=== PATIENT | male | born 1950 | race Caucasian/White ===

== ENCOUNTER 2021-06-25 08:59 | Outpatient (CLI) | payer MEDICARE, OTHER, SELFPAY ==
--- NOTE | 2021-06-25 09:14 | EKG12_ITS ---
Test Reason : PRE OP Blood Pressure : / mmHG Vent. Rate : 051 BPM Atrial Rate : 051 BPM P-R Int : 160 ms QRS Dur : 098 ms QT Int : 396 ms P-R-T Axes : 056 088 073 degrees QTc Int : 364 ms Sinus bradycardia Septal infarct , age undetermined Abnormal ECG Confirmed by FENG RODRIGUEZ, MARK ([id number]), purchasing expeditor CHAVO DAVIS ([id number]) on 06/25/2021 2:20:38 PM Referred By: Orestes Peters Confirmed By:MARK TONEY MD
--- NOTE | 2021-06-25 09:30 | RAD_ITS ---
STUDY: X-RAY CHEST REASON FOR EXAM: Male, 70 years old. Preoperative evaluation. TECHNIQUE: Frontal and lateral views of the chest. COMPARISON: 01/08/2013. FINDINGS: Hyperexpansion. Scattered healed parenchymal granulomatous calcifications. There is no demonstrated pleural abnormality. Borderline cardiomegaly with aortic tortuosity. Normal mediastinum and clifton. Normal visualized pulmonary arteries. Normal visualized thoracic spine. Normal visualized ribs, clavicles, and shoulders. There is no demonstrated abnormality of the visualized soft tissue structures of the upper abdomen. RAD/Chest PA and Lateral IMPRESSION: Borderline cardiomegaly with mild hyperexpansion. No active or acute cardiopulmonary disease. Electronically Signed: Neel Mitchell MD at 9:20 EST ,
== END 2021-06-25 23:59 | disposition home or self-care (01) ==
PROVIDERS: PCP Internal Medicine; Referring Provider Orthopaedic Surgery; Visit Provider Orthopaedic Surgery
DX: Z01.810 Encounter for preprocedural cardiovascular examination (principal); Z01.811 Encounter for preprocedural respiratory examination
CPT/HCPCS: 71046; 93005

== ENCOUNTER → 2021-09-05 | Outpatient (CLI) | payer MEDICARE, OTHER, SELFPAY ==
[2021-09-05 12:16] LABS: Absolute Lymphocyte Count 1.19 X10^3/uL (0.83-4.51); Absolute Neutrophil Count 5.3 X10^3/uL (2.0-7.7); Basophil# 0.06 X10^3/uL; Basophil% 0.8 % (0-1); Eosinophil# 0.23 X10^3/uL; Hematocrit 48.2 % (40-54); Hemoglobin 15.1 g/dL (13.0-16.5); Lymphocyte # 1.19 X10^3/ul (0.83-4.51); Lymphocyte % 15.5 % (19-41); Mean Corp Hgb Conc 31.3 g/dL (32-36); Mean Corpuscular Hgb 30.7 pg (27.0-32.0); Mean Platelet Vol. 10.2 fl (6.2-12.0); Monocyte# 0.85 X10^3/uL; Monocyte% 11.1 % (0-10); NRBC Flagged by Analyzer 0 % (0-5); Neutrophil # 5.33 X10^3/uL (2.7-7.7); Neutrophil % 69.3 % (47-70); Platelet Count 261 K/mm3 (150-450); RBC Distribution Width CV 13.1 % (11.6-14.6); Red Blood Count 4.92 M/mm3 (4.6-6.2); White Blood Count 7.7 K/mm3 (4.4-11.0)
[2021-09-05 12:45] LABS: ALB/GLOB Ratio 1.1 RATIO (0.9-2.4); AST(SGOT) 17 U/L (15-37); Alanine Aminotransfer ALT/SGPT 35 U/L (16-61); Albumin, Serum 3.5 g/dL (3.2-5.0); Alkaline Phosphatase 85 U/L (45-117); Anion Gap 4 (5-15); BUN 26 mg/dL (7-18); BUN/Creat Ratio 27.3 RATIO (10-20); Calcium,Total 9.1 mg/dL (8.5-10.1); Chloride 107 mmol/L (98-107); Cholesterol 219 mg/dL (200); Creatinine, Serum 0.95 mg/dL (0.70-1.30); EST Glomerular Filtration Rate 83 mL/min (>60); Est Glom Filt Rate - Afr Amer 100 mL/min (>60); Globulin 3.3 g/dL (2.2-4.2); Glucose 101 mg/dL (74-106); High Density Lipoprotein 52 mg/dL; Potassium 4.5 mmol/L (3.5-5.1); Protein, Total 6.8 g/dL (6.4-8.2); Sodium Level 142 mmol/L (136-145); Triglycerides 66 mg/dL; Very Low Density Lipoprotein 13 mg/dL (5-40)
[2021-09-05 13:00] LABS: Hemoglobin A1c 5.9 % (3.8-5.6)
== END | disposition home or self-care (01) ==
LOC: BIMLAB 08:04
PROVIDERS: PCP Internal Medicine; Referring Provider Internal Medicine; Visit Provider Internal Medicine
DX: I10 Essential (primary) hypertension (principal); K21.9 Gastro-esophageal reflux disease without esophagitis; R73.03 Prediabetes; E78.5 Hyperlipidemia, unspecified
CPT/HCPCS: 36415; 80053; 80061; 83036; 85025

== ENCOUNTER → 2021-09-21 | Outpatient (CLI) | payer MEDICARE, OTHER, SELFPAY ==
--- NOTE | 2021-09-21 | KNEE_PTH ---
PATIENT: RODRIGUEZ BLUE [facility]: [facility] U#:[id number] AGE/SX: 70/M ROOM: RE09/21/[address]: Dr. Orestes Peters MD : 1950 BED: DIS: 09/21/2021 SPEC #: [id number] RECD: 09/21/21 15:16 STATUS: EDI REArin #: [id number] NATHALIE: 09/21/21 00:[address]: Orestes Peters DEPT: SURGICAL PATHOLOGY RECD BY: Trell Jaeger ENTERED: 09/24/21 08:30 SP TYPE: TOTAL KNEE OTHR DR: Dr. Celestina Meyer MD [facility] Tissues: Knee, NOS Procedures: Decalcification bone/plaque Surgery Specimen Level IV HEADER OPERATION: Right total knee arthroplasty PRE-OP DIAGNOSIS: Grade 4 osteoarthritis right knee TISSUE SUBMITTED: Bone and soft tissue right knee MICROSCOPIC DIAGNOSIS Bone and soft tissue, right knee, total knee replacement/resection: Pieces of bone with degenerative osteoarthritic changes. Fibroadipose tissue, fibroconnective tissue and reactive synovial tissue. TITI:michael 09/27/2021 MICROSCOPIC DESCRIPTION Slides are reviewed. GROSS DESCRIPTION Received is one container designated bone and soft tissue right knee. The specimen consists of multiple fragments of finnegan-yellow bone measuring in aggregate 12 x 10 x 4 cm. Also in the specimen container are multiple fragments of yellow-white soft tissue measuring in aggregate 8 x 5 x 2 cm. A number of bony fragments contain articular surfaces consistent with tibial plateau and femoral condyle and displaying prominent osteophyte formation, eburnation, and bone erosion. Crna sections are submitted in two cassettes as follows: 1 - soft tissue, 2 - bone after decalcification. / TITI:michael 09/24/2021 TC:5 [facility]: [id number], [id number]
== END | disposition home or self-care (01) ==
LOC: LABSPEC 16:03
PROVIDERS: PCP Internal Medicine; Referring Provider Orthopaedic Surgery; Visit Provider Orthopaedic Surgery
DX: M17.11 Unilateral primary osteoarthritis, right knee (principal)
CPT/HCPCS: 88305; 88311

== ENCOUNTER → 2022-03-05 | Outpatient (CLI) | payer MEDICARE, OTHER, SELFPAY ==
--- NOTE | 2022-03-04 07:30 | KNEE_PTH ---
PATIENT: RODRIGUEZ BLUE [facility] U#:[id number] AGE/SX: 71/M ROOM: RE03/05/[address]: Dr. Orestes Peters MD : 1950 BED: DIS: 03/05/2022 SPEC #: [id number] RECD: 03/05/22 14:22 STATUS: EDI REArin #: [id number] NATHALIE: 03/04/22 07:[address]: Orestes Peters DEPT: SURGICAL PATHOLOGY RECD BY: Marya Noe ENTERED: 03/06/22 11:49 SP TYPE: TOTAL KNEE OTHR DR: Dr. Celestina Meyer MD [facility] Tissues: Knee, NOS Procedures: Decalcification bone/plaque Surgery Specimen Level IV HEADER OPERATION: Left knee, total knee arthroplasty PRE-OP DIAGNOSIS: Left knee grade 4 primary osteoarthritis TISSUE SUBMITTED: Left knee bone and tissue MICROSCOPIC DIAGNOSIS Bone and soft tissue, left knee, total knee replacement/resection: Pieces of bone with degenerative osteoarthritic changes. Fibroadipose tissue, fibroconnective tissue and reactive synovial tissue. TITI:michael 03/11/2022 MICROSCOPIC DESCRIPTION Slides are reviewed. GROSS DESCRIPTION Received is one container designated bone and soft tissue left knee. The specimen consists of multiple fragments of finnegan-yellow bone measuring in aggregate 9 x 9 x 4 cm. Also in the specimen container are multiple fragments of yellow-white soft tissue measuring in aggregate 8 x 5 x 2 cm. A number of bony fragments contain articular surfaces consistent with tibial plateau and femoral condyle and displaying prominent osteophyte formation, eburnation, and bone erosion. Manufacturing Baker sections are submitted in two cassettes as follows: 1 - soft tissue, 2 - bone after decalcification. / TITI:mil 03/06/2022 TC:5 [facility]: [id number], [id number]
== END | disposition home or self-care (01) ==
LOC: LABSPEC 14:49
PROVIDERS: PCP Internal Medicine; Visit Provider Orthopaedic Surgery
DX: M17.12 Unilateral primary osteoarthritis, left knee (principal)
CPT/HCPCS: 88305; 88311

== ENCOUNTER → 2022-06-24 | Outpatient (CLI) | payer MEDICARE, OTHER, SELFPAY ==
[2022-06-24 12:48] LABS: Absolute Lymphocyte Count 0.83 X10^3/uL (0.83-4.51); Absolute Neutrophil Count 4.1 X10^3/uL (2.0-7.7); Basophil# 0.07 X10^3/uL; Basophil% 1.2 % (0-1); Eosinophil# 0.22 X10^3/uL; Eosinophils% 3.7 % (0-5); Hematocrit 43.1 % (40-54); Hemoglobin 13.6 g/dL (13.0-16.5); Lymphocyte # 0.83 X10^3/ul (0.83-4.51); Lymphocyte % 13.9 % (19-41); Mean Corp Hgb Conc 31.6 g/dL (32-36); Mean Corpuscular Hgb 30.6 pg (27.0-32.0); Mean Corpuscular Volume 97.1 fL (80-94); Mean Platelet Vol. 10.2 fl (6.2-12.0); Monocyte# 0.77 X10^3/uL; Monocyte% 12.9 % (0-10); NRBC Flagged by Analyzer 0 % (0-5); Neutrophil # 4.08 X10^3/uL (2.7-7.7); Platelet Count 280 K/mm3 (150-450); RBC Distribution Width SD 46.1 fl (35.1-43.9); Red Blood Count 4.44 M/mm3 (4.6-6.2)
[2022-06-24 12:49] LABS: AST(SGOT) 21 U/L (15-37); Alanine Aminotransfer ALT/SGPT 25 U/L (16-61); Albumin, Serum 3.4 g/dL (3.2-5.0); Alkaline Phosphatase 113 U/L (45-117); Anion Gap 6 (5-15); BUN 21 mg/dL (7-18); BUN/Creat Ratio 23.2 RATIO (10-20); Chloride 105 mmol/L (98-107); Cholesterol 173 mg/dL (200); EST Glomerular Filtration Rate 87 mL/min (>60); Est Glom Filt Rate - Afr Amer 106 mL/min (>60); Globulin 3.4 g/dL (2.2-4.2); Glucose 104 mg/dL (74-106); High Density Lipoprotein 48 mg/dL; PSA,Total- Diagnostic 4.08 ng/mL (0.0-4.0); Potassium 3.7 mmol/L (3.5-5.1); Protein, Total 6.8 g/dL (6.4-8.2); Sodium Level 141 mmol/L (136-145); Triglycerides 70 mg/dL; Very Low Density Lipoprotein 14 mg/dL (5-40)
[2022-06-24 13:24] LABS: Hemoglobin A1c 5.6 % (3.8-5.6)
== END | disposition home or self-care (01) ==
LOC: BIMLAB 08:47
PROVIDERS: PCP Internal Medicine; Referring Provider Internal Medicine; Visit Provider Internal Medicine
DX: I10 Essential (primary) hypertension (principal); K21.9 Gastro-esophageal reflux disease without esophagitis; R73.03 Prediabetes; R35.1 Nocturia
CPT/HCPCS: 36415; 80053; 80061; 83036; 84153; 85025

== ENCOUNTER → 2023-02-26 | Outpatient (CLI) | payer MEDICARE, OTHER, SELFPAY ==
[2023-02-26 16:30] LABS: Absolute Lymphocyte Count 1.15 X10^3/uL (0.83-4.51); Absolute Neutrophil Count 6.3 X10^3/uL (2.0-7.7); Basophil# 0.05 X10^3/uL; Basophil% 0.6 % (0-1); Eosinophil# 0.11 X10^3/uL; Eosinophils% 1.3 % (0-5); Hematocrit 44.5 % (40-54); Hemoglobin 14.2 g/dL (13.0-16.5); Lymphocyte # 1.15 X10^3/ul (0.83-4.51); Lymphocyte % 13.6 % (19-41); Mean Corp Hgb Conc 31.9 g/dL (32-36); Mean Corpuscular Hgb 29.9 pg (27.0-32.0); Mean Corpuscular Volume 93.7 fL (80-94); Mean Platelet Vol. 9.4 fl (6.2-12.0); Monocyte# 0.79 X10^3/uL; Monocyte% 9.3 % (0-10); NRBC Flagged by Analyzer 0 % (0-5); Neutrophil # 6.34 X10^3/uL (2.7-7.7); Neutrophil % 74.7 % (47-70); Platelet Count 303 K/mm3 (150-450); RBC Distribution Width CV 13.1 % (11.6-14.6); RBC Distribution Width SD 45.1 fl (35.1-43.9); Red Blood Count 4.75 M/mm3 (4.6-6.2); White Blood Count 8.5 K/mm3 (4.4-11.0)
[2023-02-26 16:54] LABS: CRP 5.04 mg/L (0.0-3.0)
[2023-02-26 17:07] LABS: Erythrocyte Sedimentation Rate 6 mm/hr (0-20)
== END | disposition home or self-care (01) ==
LOC: LAB 16:07
PROVIDERS: PCP Internal Medicine; Visit Provider Orthopaedic Surgery
DX: M25.562 Pain in left knee (principal); Z96.652 Presence of left artificial knee joint
CPT/HCPCS: 36415; 85025; 85652; 86140

== ENCOUNTER → 2023-03-05 | Outpatient (CLI) | payer MEDICARE, OTHER, SELFPAY ==
[2023-03-05 17:34] LABS: Synovial Fld Mononuclear WBC # 0.109 10^3/ul; Synovial Fld Mononuclear WBC % 87.9 %; Synovial Fld Polynuclear WBC # 0.015 10^3/uL; Synovial Fld Polynuclear WBC % 12.1 %
[2023-03-05 18:46] LABS: Lymph 27 %; Monocyte /Synovial Fluid 34 %; Neutrophil 12 % (0-25); Other Cell /Synovial Fluid 27 %
[2023-03-05 18:50] LABS: AUTO B FLUID DILUENT BKGD CT WBC <0.1 RBC <0.01 (W<.1,R<.01)
[2023-03-05 18:51] LABS: Appearance /Synovial Fluid Clear (CLEAR); Body Fluid QC Type(s) BF1Q; Color / Synovial Fluid Straw (Pale Yellow); RBC /Synovial Fluid 678 /mm3 (0)
[2023-03-10 09:35] LABS: Pathologist Comment Reviewed
== END | disposition home or self-care (01) ==
LOC: LAB 15:25
PROVIDERS: PCP Internal Medicine; Referring Provider Orthopaedic Surgery; Visit Provider Orthopaedic Surgery
DX: M25.562 Pain in left knee (principal); Z96.652 Presence of left artificial knee joint; Z71.3 Dietary counseling and surveillance
CPT/HCPCS: 87015; 87070; 87075; 87101; 87116; 87205; 87206; 89050; 89051

== ENCOUNTER → 2023-06-16 | Outpatient (CLI) | payer MEDICARE, OTHER, SELFPAY ==
--- NOTE | 2023-06-16 10:40 | RAD_ITS ---
INDICATION: Bilateral hip pain, arthritis EXAMINATION/TECHNIQUE: X-RAY - XR Hips Bilateral with Pelvis when performed; 5 Views COMPARISON: No relevant prior comparison study available. FINDINGS: PELVIC BONES: No displaced fracture, destructive or sclerotic lesions. Note that overlapping bowel shadows may however obscure fine detail. Sacroiliac joints are unremarkable. No widening of the pubic symphysis. HIPS: The articular structures are unremarkable. No displaced fracture seen. SOFT TISSUES: No soft tissue swelling or gas. RAD/Hips B/L min 2 views w/ Pelvis IMPRESSION: No evidence of displaced pelvic or hip fracture. Electronically Signed: Bruce Sol MD at 9:42 EST ,
--- NOTE | 2023-06-16 10:40 | RAD_ITS ---
STUDY: X-RAY - RIGHT HAND REASON FOR EXAM: Male, 72 years old. hand pain, arthritis -- original e order, as bilateral hands TECHNIQUE: 3 view(s) of the hand. COMPARISON: None. FINDINGS: Normal radiocarpal articulation. Normal distal radioulnar joint. Normal visualized carpal bones. Normal carpal articulations Normal carpometacarpal articulation of the thumb. Normal second through fifth carpometacarpal joints. Normal metacarpi. Normal metacarpophalangeal joint of the thumb. Normal interphalangeal joint of the thumb. Normal proximal and distal phalanges of the thumb. Normal metacarpophalangeal joints of the second through fifth fingers. Normal proximal and distal interphalangeal joints of the second through fifth fingers. Normal phalanges of the second through fifth fingers. The soft tissue structures are unremarkable. RAD/Hand Min 3 Views IMPRESSION: Normal x-ray examination of the hand. Electronically Signed: Bienvenido Reza MD at 11:24 EST ,
--- NOTE | 2023-06-16 10:42 | RAD_ITS ---
STUDY: X-RAY - LEFT HAND REASON FOR EXAM: Male, 72 years old. Pain TECHNIQUE: 3 view(s) of the hand. COMPARISON: None. FINDINGS: Normal radiocarpal articulation. Normal distal radioulnar joint. Normal visualized carpal bones. Normal carpal articulations There is degenerative arthrosis of the carpometacarpal articulation of the thumb with lateral subluxation of the first metacarpus. Normal second through fifth carpometacarpal joints. Normal metacarpi. Normal metacarpophalangeal joint of the thumb. Normal interphalangeal joint of the thumb. Normal proximal and distal phalanges of the thumb. Normal metacarpophalangeal joints of the second through fifth fingers. Normal proximal and distal interphalangeal joints of the second through fifth fingers. Normal phalanges of the second through fifth fingers. The soft tissue structures are unremarkable. 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 Electronically Signed: Bienvenido Reza MD at 11:25 EST ,
[2023-06-16 12:26] LABS: Absolute Lymphocyte Count 1.23 X10^3/uL (0.83-4.51); Absolute Neutrophil Count 5.3 X10^3/uL (2.0-7.7); Basophil# 0.07 X10^3/uL; Basophil% 0.9 % (0-1); Eosinophil# 0.23 X10^3/uL; Hematocrit 47.6 % (40-54); Hemoglobin 15.5 g/dL (13.0-16.5); Lymphocyte # 1.23 X10^3/ul (0.83-4.51); Lymphocyte % 16.2 % (19-41); Mean Corp Hgb Conc 32.6 g/dL (32-36); Mean Corpuscular Hgb 30.1 pg (27.0-32.0); Mean Corpuscular Volume 92.4 fL (80-94); Mean Platelet Vol. 10.4 fl (6.2-12.0); Monocyte# 0.72 X10^3/uL; Monocyte% 9.5 % (0-10); NRBC Flagged by Analyzer 0 % (0-5); Neutrophil # 5.33 X10^3/uL (2.7-7.7); Neutrophil % 70.1 % (47-70); Platelet Count 271 K/mm3 (150-450); RBC Distribution Width CV 13.1 % (11.6-14.6); RBC Distribution Width SD 44.3 fl (35.1-43.9); Red Blood Count 5.15 M/mm3 (4.6-6.2); White Blood Count 7.6 K/mm3 (4.4-11.0)
[2023-06-16 13:19] LABS: Vitamin D,25 Hydroxy 74.1 ng/mL
[2023-06-16 13:39] LABS: ALB/GLOB Ratio 1.1 RATIO (0.9-2.4); AST(SGOT) 21 U/L (15-37); Alanine Aminotransfer ALT/SGPT 46 U/L (16-61); Albumin, Serum 3.7 g/dL (3.2-5.0); Alkaline Phosphatase 124 U/L (45-117); Anion Gap 2 (5-15); BUN 23 mg/dL (7-18); BUN/Creat Ratio 21.7 RATIO (10-20); Calcium,Total 9.4 mg/dL (8.5-10.1); Chloride 111 mmol/L (98-107); Cholesterol 173 mg/dL (200); Creatinine, Serum 1.06 mg/dL (0.70-1.30); EST Glomerular Filtration Rate 73 mL/min (>60); Est Glom Filt Rate - Afr Amer 88 mL/min (>60); Globulin 3.4 g/dL (2.2-4.2); Glucose 99 mg/dL (74-106); High Density Lipoprotein 48 mg/dL; PSA,Total- Diagnostic 4.76 ng/mL (0.0-4.0); Potassium 3.9 mmol/L (3.5-5.1); Protein, Total 7.1 g/dL (6.4-8.2); Rheumatoid Factor < 10.0 IU/mL (<15); Sodium Level 142 mmol/L (136-145); Triglycerides 82 mg/dL; Very Low Density Lipoprotein 16 mg/dL (5-40)
[2023-06-17 13:08] LABS: CCP IgG Antibodies 1 units (0-19)
[2023-06-17 15:08] LABS: ANTINUCLEAR ANTIBODIES DIRECT Positive (Negative); Anti-Centromere B Ab <0.2 AI (0.0-0.9); Anti-Chromatin <0.2 AI (0.0-0.9); Anti-Jo <0.2 AI (0.0-0.9); Anti-Scleroderma-70 AB <0.2 AI (0.0-0.9); Anti-dsDNA Ab <1 IU/mL (0-9); RNP Ab <0.2 AI (0.0-0.9); SJOGREN'S Anti-SS-A test < 0.2 AI (0.0-0.9); SJOGREN'S Anti-SS-B test < 0.2 AI (0.0-0.9); Smith Ab <0.2 AI (0.0-0.9)
== END | disposition home or self-care (01) ==
PROVIDERS: PCP Internal Medicine; Referring Provider Internal Medicine; Visit Provider Internal Medicine
DX: M25.50 Pain in unspecified joint (principal); I10 Essential (primary) hypertension; K21.9 Gastro-esophageal reflux disease without esophagitis; N52.9 Male erectile dysfunction, unspecified; E55.9 Vitamin D deficiency, unspecified; R97.20 Elevated prostate specific antigen [PSA]
CPT/HCPCS: 36415; 73130; 73521; 80053; 80061; 82306; 84153; 85025; 86038; 86200; 86225; 86235; 86431

== ENCOUNTER → 2023-12-03 | Outpatient (CLI) | payer MEDICARE, OTHER, SELFPAY ==
--- NOTE | 2023-12-03 15:51 | RAD_ITS ---
EXAM: XR LUMBOSACRAL SPINE, 2 OR 3 VIEWS CLINICAL INDICATION: pain TECHNIQUE: Frontal and lateral views of the lumbar spine and sacrum. COMPARISON: No relevant prior studies available. FINDINGS: VERTEBRAE: Mild straightening of the usual lordotic curvature, some of the usual lordosis obtained at the lower lumbar spine. At least mild vertebral body height at L1, greater on the right, likely chronic. Multilevel spondylosis and endplate changes, most pronounced at L3-4. Mild dextroscoliosis centered at L2-3. Preserved vertebral body height. No fracture. No significant facet arthropathy. DISC SPACES: Marked disc space narrowing at L3-4 with vacuum disc. Mild narrowing at other levels. GASTROINTESTINAL TRACT: There is moderate stool proximal half to two thirds of the colon. Minimal rectal contents. No dilated small bowel. OTHER FINDINGS: Unremarkable posterior medial lung bases. RAD/Lumbar Spine 2 or 3 Views IMPRESSION: 1. Moderate degenerative lumbar spine changes. Compression deformity of L1, likely chronic. Degenerative disc changes. 2. Peripheral calcification of the aorta, no evidence of infrarenal aortic aneurysm. 3. Moderate stool in the colon. Electronically Signed: Veronica Matthew MD at 0:08 EDT ,
== END | disposition home or self-care (01) ==
LOC: MTRAD 15:51
PROVIDERS: PCP Internal Medicine; Referring Provider Nurse Practitioner; Visit Provider Nurse Practitioner
DX: M54.32 Sciatica, left side (principal)
CPT/HCPCS: 72100

== ENCOUNTER → 2023-12-29 | Outpatient (CLI) | payer MEDICARE, OTHER, SELFPAY ==
--- NOTE | 2023-12-29 12:47 | ECHOD_ITS ---
Reason For Study: MURMUR Procedure This was a 2D Doppler, Color Flow transthoracic echocardiogram. Exam performed in department. Left Ventricle Normal LV size. Left ventricular systolic function is normal. The left ventricular ejection fraction is 55 %. Stage 1 diastolic dysfunction. No regional wall motion abnormalities noted. Right Ventricle Normal RV size. Normal systolic function. Atria Normal left atrium. Normal right atrium. Mitral Valve Normal mitral valve. Tricuspid Valve Normal tricuspid valve. Aortic Valve Trisinus/trileaflet aortic valve. Pulmonic Valve Normal pulmonic valve. Great Vessels Normal aortic root. The pulmonary artery is normal size. Normal inferior vena cava. Pericardium/Pleural No pericardial effusion. MMode/2D Measurements & Calculations LVIDd: 5.5 cm IVSd: 1.1 cm LVOT diam: 1.9 cm LVIDs: 3.8 cm LVPWd: 0.93 cm LVOT area: 2.8 cm2 RVDd: 3.3 cm FS: 31.1 % LAV(MOD-bp): 67.9 ml LVAd ap4: 34.0 cm2 SV(MOD-sp4): 55.6 ml LAV(MOD-bp) Indexed: 32.0 ml/m2 LVLd ap4: 8.7 cm LAV(MOD-sp2): 77.3 ml EDV(MOD-sp4): 110.4 ml LAV(MOD-sp4): 52.6 ml EDV(sp4-el): 113.2 ml LVAs ap4: 21.6 cm2 LVLs ap4: 7.8 cm ESV(MOD-sp4): 54.7 ml ESV(sp4-el): 51.0 ml EF(MOD-sp4): 50.4 % EF(sp4-el): 54.9 % SV(sp4-el): 62.2 ml LA A4 area: 19.6 cm2 LA dimension(2D): 3.9 cm RA A4 area: 15.3 cm2 Time Measurements MV dec time: 0.26 sec Doppler Measurements & Calculations MV E max johs: 77.3 cm/sec Lat Peak E' Josh: 10.8 cm/sec Med Peak E' Josh: 7.4 cm/sec MV A max josh: 91.2 cm/sec E/E' lat: 7.1 E/E' med: 10.4 MV E/A: 0.85 MV V2 max: 95.0 cm/sec Ao V2 max: 183.9 cm/sec MV max P.6 mmHg MV dec slope: 296.3 cm/sec2 Ao max P.5 mmHg MV V2 mean: 52.5 cm/sec Ao V2 mean: 125.8 cm/sec MV mean P.3 mmHg Ao mean P.3 mmHg MV V2 VTI: 43.1 cm Ao V2 VTI: 38.9 cm AV (velocity ratio): 0.78 MVA(VTI): 2.0 cm2 SNOW(I,D): 2.2 cm2 SNOW(V,D): 2.2 cm2 LV V1 max: 144.6 cm/sec SV(LVOT): 85.6 ml PA V2 max: 122.7 cm/sec LV V1 max P.4 mmHg PA V2 mean: 78.2 cm/sec LV V1 mean P.8 mmHg LV V1 mean: 102.2 cm/sec LV V1 VTI: 30.5 cm ECHO/Echo Complete Interpretation Summary Normal LV size. Left ventricular systolic function is normal. The left ventricular ejection fraction is 55 %. Stage 1 diastolic dysfunction. Ordering Physician: Blanca Crawford Referring Physician: Blanca Crawford Performed By: Yari Joyce RCS
== END | disposition home or self-care (01) ==
LOC: CVS 12:47
PROVIDERS: PCP Internal Medicine; Referring Provider Nurse Practitioner; Visit Provider Nurse Practitioner
DX: R01.1 Cardiac murmur, unspecified (principal)
CPT/HCPCS: 93306

== ENCOUNTER → 2024-01-15 | Outpatient (CLI) | payer MEDICARE, OTHER, SELFPAY ==
--- NOTE | 2024-01-15 08:44 | EKG12_ITS ---
Test Reason : PRE OP Blood Pressure : / mmHG Vent. Rate : 055 BPM Atrial Rate : 055 BPM P-R Int : 148 ms QRS Dur : 160 ms QT Int : 446 ms P-R-T Axes : 027 088 061 degrees QTc Int : 426 ms Sinus bradycardia Right bundle branch block Abnormal ECG Confirmed by Jamison Hurst ([id number]), supervising editor news reel CHAVO DAVIS ([id number]) on 01/16/2024 6:01:54 AM Referred By: Jac Bingham Confirmed By:Jamison Hurst
--- NOTE | 2024-01-15 08:50 | RAD_ITS ---
INDICATION: PRE OP EXAMINATION/TECHNIQUE: X-RAY - XR Chest 2 Views COMPARISON: FINDINGS: LINES/DEVICES: None. LUNGS: No consolidation, edema or effusion. No pneumothorax. MEDIASTINUM AND CARDIOVASCULAR STRUCTURES: Cardiac silhouette not enlarged. Central airways and mediastinal contour are unremarkable. BONES AND SOFT TISSUES: Unremarkable. RAD/Chest PA and Lateral IMPRESSION: No radiographic evidence of acute cardiopulmonary disease. Electronically Signed: Sam Durbin DO at 17:21 EDT ,
[2024-01-15 09:50] LABS: Absolute Lymphocyte Count 0.93 X10^3/uL (0.83-4.51); Absolute Neutrophil Count 4.6 X10^3/uL (2.0-7.7); Basophil# 0.06 X10^3/uL; Basophil% 0.9 % (0-1); Eosinophil# 0.26 X10^3/uL; Hematocrit 41.1 % (40-54); Hemoglobin 13.4 g/dL (13.0-16.5); Lymphocyte # 0.93 X10^3/ul (0.83-4.51); Lymphocyte % 14.3 % (19-41); Mean Corp Hgb Conc 32.6 g/dL (32-36); Mean Corpuscular Hgb 30.5 pg (27.0-32.0); Mean Corpuscular Volume 93.6 fL (80-94); Mean Platelet Vol. 9.6 fl (6.2-12.0); Monocyte# 0.62 X10^3/uL; Monocyte% 9.5 % (0-10); NRBC Flagged by Analyzer 0 % (0-5); Neutrophil # 4.62 X10^3/uL (2.7-7.7); Platelet Count 276 K/mm3 (150-450); RBC Distribution Width CV 13.2 % (11.6-14.6); RBC Distribution Width SD 45.2 fl (35.1-43.9); Red Blood Count 4.39 M/mm3 (4.6-6.2); White Blood Count 6.5 K/mm3 (4.4-11.0)
[2024-01-15 09:59] LABS: International Normalized Ratio 1.1; Prothrombin Time (Protime)PT. 14.4 SECONDS (11.7-14.9)
[2024-01-15 10:00] LABS: Partial Thromboplast Time 29.5 Seconds (24.1-36.2)
[2024-01-15 10:23] LABS: Anion Gap 3 (5-15); BUN 29 mg/dL (7-18); BUN/Creat Ratio 26.6 RATIO (10-20); Calcium,Total 9.3 mg/dL (8.5-10.1); Chloride 109 mmol/L (98-107); Creatinine, Serum 1.09 mg/dL (0.70-1.30); EST Glomerular Filtration Rate 70 mL/min (>60); Est Glom Filt Rate - Afr Amer 85 mL/min (>60); Glucose 107 mg/dL (74-106); Potassium 3.6 mmol/L (3.5-5.1); Sodium Level 142 mmol/L (136-145)
== END | disposition home or self-care (01) ==
PROVIDERS: PCP Internal Medicine; Referring Provider Orthopaedic Surgery; Visit Provider Orthopaedic Surgery
DX: Z01.818 Encounter for other preprocedural examination (principal); M48.061 Spinal stenosis, lumbar region without neurogenic claudication; M47.896 Other spondylosis, lumbar region; M54.16 Radiculopathy, lumbar region; M96.1 Postlaminectomy syndrome, not elsewhere classified; M51.36 Other intervertebral disc degeneration, lumbar region; Z79.899 Other long term (current) drug therapy; I10 Essential (primary) hypertension; E78.00 Pure hypercholesterolemia, unspecified; Z01.812 Encounter for preprocedural laboratory examination; Z01.810 Encounter for preprocedural cardiovascular examination; Z01.811 Encounter for preprocedural respiratory examination
CPT/HCPCS: 36415; 71046; 80048; 85025; 85610; 85730; 93005

== ENCOUNTER 2024-01-30 10:30 | Outpatient (RCR) | payer MEDICARE, OTHER, SELFPAY ==
--- NOTE | 2023-11-17 09:55 | HP.PTEVAL_ITS ---
Patient's Visit Information Visit Information Visit Information: RODRIGUEZ BLUE is a 72 year old M referred to Physical Therapy by ALBERT Bui with a diagnosis of L sided sciatica/strain of Lumbar region. Date of Evaluation: 11/17/23 Physical Therapist: CAMACHO López Visit Plan Frequency: 2x /Week Duration: 6 Weeks Plan: Encouraged pt to get a taller cane for himself to take the pressure off his spine. 2X/ week for 6 weeks for mat exercises starting with LTR and possible Prone to YUKI light stretches if not causing increase pain (neutral spine core stability and progressing to sitting/ standing core stability), gait training with HEP HEP: prone to YUKI to stretch out L spine and Supine LTR Subjective Subjective: Pt had 2 TKR in 2021 and the L has never healed correctly. He reports that after he got done with the PT and he saw the surgeon a couple of times and they drained fluid off of it. They drained 2 vials off of it. He saw a different Dr after that and the last person he saw told him that his knee was looser on the L side but thought it was muscular and was told to do exercises at home and RTD on Dec 28. He is still having L knee soreness. He sees a chiropractor on a regular basis because he ruptured a few discs in his back in 2000. On October 28 he had his monthly appt with the chiropractor and he was adjusted and by the next Friday he was hurting worse and worse and the only way he could get relief was to lay on his L side in position and to walk bent over. Heat was better for him. November 06 he was miserable enough and went to [facility] and the PA gave him some muscle relaxers, prednisone and another medicine. He is not sure if the meds did anything but used them. He also gave him a referral to PT. He went back to the Chiro on November 11 and it was very painful. He cannot lift things. He walks with a cane since his knee surgery. He is sore in sitting but not pain. He has pain with walking or standing. He is able to sleep on his back or on his L side. His pain is on the L side of his back and pain that goes from his back and into his groin and the Quad on the L side and hurts bad. Pain Back pain: Pain Intensity (Out of 10): 3 Comment: with walking 7-8/ L leg pain: Pain Intensity (Out of 10): 3 Comment: with walking 7-8 Objective Objective: Gait: walks with a straight cane (too short for him) in the R hand with his trunk bent FW and leaning to the Right. He takes shorter step length with no trunk rotation. Had patient use a taller straight cane and he was able to walk with more upright posture and longer strides. He is able to do standing heel and toe raises LTR X 5 to each side with no increase in pain Bridges increase his pain and pain remained the same after 5 attempt -SLR B (HS tightness) and -SLUMP test B (HS tightness) Trunk AROM: flexion 50%, ext 10%, SB R 50% and L 25%, Rot B 50% Pelvic tilt X 10 ( no increase in pain) SKC on the L caused some knee pain but back pain remained the same Prone lying X 3 min (still had back pain on the L side but no increase or decrease in pain) Prone lying and knee to buttock caused increase pain in B Quads (tightness) Prone lying to YUKI X 5 (no increase pain) Balance/Special Test Scores Oswestry Low Back Score: 31 Goals Goal 1:: I HEP Goal Time Frame: 4-6 Weeks Goal 2:: Walk with more upright posture with proper height of cane with less back pain Goal Time Frame: 4-6 Weeks Goal 3:: Increase pain free trunk AROM Rehabilitation Potential Rehabilitation Potential: Good Anticipated Interventions Patient/Client Instruction: Educate patient on: Condition and Plan of Care For the Purpose of:: To decrease pain, To decrease swelling/inflammation, To increase ROM, To improve nutrient delivery to tissue, To improve muscle performance and motor function, To improve ability to perform ADL's, To increase tolerance to activity/condition/position, To improve performance and independence with ADL's, To decrease level of supervision to perform tasks, To improve ability of physical actions for home/community/work/leisure, To improve gait and locomotor functions, To improve health of tissue, To decrease soft tissue restriction, To increase flexibility/ROM and To improve safety with gait Therapeutic Exercise to Include: Strength training, Endurance training, Body mechanics, Postural training, Flexibilty training, Gait and locomotor training, Neuromotor development, Active ROM, Dynamic Lumbar Stabilization and Scapular Strength/Stabilization For the Purpose of:: To decrease pain, To decrease swelling/inflammation, To increase ROM, To improve nutrient delivery to tissue, To increase oxygenation perfusion, To improve muscle performance and motor function, To improve ability to perform ADL's, To increase tolerance to activity/condition/position, To improve performance and independence with ADL's, To decrease level of supervision to perform tasks, To improve ability of physical actions for home/community/work/leisure, To improve gait and locomotor functions, To improve health of tissue, To decrease soft tissue restriction and To increase flexibility/ROM Functional Training to Include: Gait training For the Purpose of:: To improve gait and locomotor functions Text: Thank you for the opportunity to evaluate your patient. For Medicare and Medicare HMO plans, please review the plan of care and approve it. It will need to be FAXED BACK to us at [phone] for Medicare purposes. For Medicare only, by signing this I certify the plan of care. Please let me know if there are questions or concerns regarding this plan of care. Physician Signat ure: Date:
--- NOTE | 2023-12-15 11:04 | HP.PTREVAL_ITS ---
Re-Evaluation Intro: ALBERT Bui, It has been my pleasure to treat RODRIGUEZ BLUE over the last 9 visits for L sided sciatica/strain of Lumbar region. Please see the progress note below for an update on the physical therapy plan of care! Subjective Subjective: Pt thought that PT was helping but today his back hurts really bad. At times he does not feel too bad and other times it is really bad. He had some x-rays and it showed some DDD. He feels the same as he did when he came in after todays exercises. He feels that the extension principle that he did on Wed might have felt a little improvement. Objective Objective/Function: Walks with a straight cane with more shift but better with a higher cane. Plan Plan Plan: Continue with trail of extension biased exercises 2X/ week for 8 weeks for mat exercises starting with LTR and possible Prone to YUKI light stretches if not causing increase pain (neutral spine core stability a nd progressing to sitting/ standing core stability), gait training with HEP. [ End ] Balance/Gait/Functional tests Balance/Special Test Scores Oswestry Low Back Score: 27 Goals Goals Goal 1:: I HEP Goal Time Frame: 4-6 Weeks Goal Progress: Goal Met Goal 2:: Walk with more upright posture with proper height of cane with less back pain Goal Time Frame: 4-6 Weeks Goal Progress: Progressing Goal 3:: Increase pain free trunk AROM Anticipated Interventions Anticipated Interventions Patient/Client Instruction: Educate patient on: Condition and Plan of Care For the Purpose of:: To decrease pain, To decrease swelling/inflammation, To increase ROM, To improve nutrient delivery to tissue, To improve muscle performance and motor function, To improve ability to perform ADL's, To increase tolerance to activity/condition/position, To improve performance and independence with ADL's, To decrease level of supervision to perform tasks, To improve ability of physical actions for home/community/work/leisure, To improve gait and locomotor functions, To improve health of tissue, To decrease soft tissue restriction, To increase flexibility/ROM and To improve safety with gait Therapeutic Exercise to Include: Strength training, Endurance training, Body mechanics, Postural training, Flexibilty training, Gait and locomotor training, Neuromotor development, Active ROM, Dynamic Lumbar Stabilization and Scapular Strength/Stabilization For the Purpose of:: To decrease pain, To decrease swelling/inflammation, To increase ROM, To improve nutrient delivery to tissue, To increase oxygenation perfusion, To improve muscle performance and motor function, To improve ability to perform ADL's, To increase tolerance to activity/condition/position, To improve performance and independence with ADL's, To decrease level of supervision to perform tasks, To improve ability of physical actions for home/community/work/leisure, To improve gait and locomotor functions, To improve health of tissue, To decrease soft tissue restriction and To increase flexibility/ROM Functional Training to Include: Gait training For the Purpose of:: To improve gait and locomotor functions Re-Evaluation Ending Re-evaluation ending: Please do not hesitate to contact me at [phone] by phone or if you have questions or concerns regarding this new plan of care! Sincerely, Dorothy Barton, MPT
--- NOTE | 2024-01-06 11:58 | HP.PTREVAL ---
Re-Evaluation Intro: ALBERT Bui, It has been my pleasure to treat RODRIGUEZ BLUE over the last 15 visits for L sided sciatica/strain of Lumbar region. Please see the progress note below for an update on the physical therapy plan of care! Subjective Subjective: A little better today compared to Fri. He got his MRI this morning. He sees Dr Bingham on Friday. He is walking up straight today and felt good when he woke up this morning. He is moving a lot better. Somedays he is able to move better than others. He hurts really bad in the mornings. Objective Objective/Function: Trunk AROM: SB R 75 and L 50%, Ext 25%, Rot B 50%, Flexion 50%. Gait: Walks with much improved upright posture with the straight cane as he feels his leg gives out on him at times occ. Plan Plan Plan: Continue 2X/ week for 3 more weeks and pt will get his results from his Dr as he is making progress. 2X/ week for 3 more weeks for centralization of Sx, core strength, postural exercises with HEP [ End ] Balance/Gait/Functional tests Balance/Special Test Scores Oswestry Low Back Score: 25 Goals Goals Goal 1:: I HEP Goal Time Frame: 4-6 Weeks Goal Progress: Goal Met Goal 2:: Walk with more upright posture without the cane Goal Time Frame: 4-6 Weeks Goal Progress: Progressing Goal 3:: Increase pain free trunk AROM Goal Progress: Progressing Anticipated Interventions Anticipated Interventions Patient/Client Instruction: Educate patient on: Condition and Plan of Care For the Purpose of:: To decrease pain, To decrease swelling/inflammation, To increase ROM, To improve nutrient delivery to tissue, To improve muscle performance and motor function, To improve ability to perform ADL's, To increase tolerance to activity/condition/position, To improve performance and independence with ADL's, To decrease level of supervision to perform tasks, To improve ability of physical actions for home/community/work/leisure, To improve gait and locomotor functions, To improve health of tissue, To decrease soft tissue restriction, To increase flexibility/ROM and To improve safety with gait Therapeutic Exercise to Include: Strength training, Endurance training, Body mechanics, Postural training, Flexibilty training, Gait and locomotor training, Neuromotor development, Active ROM, Dynamic Lumbar Stabilization and Scapular Strength/Stabilization For the Purpose of:: To decrease pain, To decrease swelling/inflammation, To increase ROM, To improve nutrient delivery to tissue, To increase oxygenation perfusion, To improve muscle performance and motor function, To improve ability to perform ADL's, To increase tolerance to activity/condition/position, To improve performance and independence with ADL's, To decrease level of supervision to perform tasks, To improve ability of physical actions for home/community/work/leisure, To improve gait and locomotor functions, To improve health of tissue, To decrease soft tissue restriction and To increase flexibility/ROM Functional Training to Include: Gait training For the Purpose of:: To improve gait and locomotor functions Re-Evaluation Ending Re-evaluation ending: Please do not hesitate to contact me at [phone] by phone or if you have questions or concerns regarding this new plan of care! Sincerely, Dorothy Barton MPT
--- NOTE | 2024-02-03 10:13 | HP.PT.NRP ---
Patient Information Patient Information: RODRIGUEZ BLUE was seen in my office for initial evaluation on 11/17/23. The following Plan of Care was established for this patient: POC Established Initial Frequency: 2x /Week Initial Duration: 6 Weeks Anticipated Interventions Patient/Client Instruction: Educate patient on: Condition and Plan of Care For the Purpose of:: To decrease pain, To decrease swelling/inflammation, To increase ROM, To improve nutrient delivery to tissue, To improve muscle performance and motor function, To improve ability to perform ADL's, To increase tolerance to activity/condition/position, To improve performance and independence with ADL's, To decrease level of supervision to perform tasks, To improve ability of physical actions for home/community/work/leisure, To improve gait and locomotor functions, To improve health of tissue, To decrease soft tissue restriction, To increase flexibility/ROM and To improve safety with gait Therapeutic Exercise to Include: Strength training, Endurance training, Body mechanics, Postural training, Flexibilty training, Gait and locomotor training, Neuromotor development, Active ROM, Dynamic Lumbar Stabilization and Scapular Strength/Stabilization For the Purpose of:: To decrease pain, To decrease swelling/inflammation, To increase ROM, To improve nutrient delivery to tissue, To increase oxygenation perfusion, To improve muscle performance and motor function, To improve ability to perform ADL's, To increase tolerance to activity/condition/position, To improve performance and independence with ADL's, To decrease level of supervision to perform tasks, To improve ability of physical actions for home/community/work/leisure, To improve gait and locomotor functions, To improve health of tissue, To decrease soft tissue restriction and To increase flexibility/ROM Functional Training to Include: Gait training For the Purpose of:: To improve gait and locomotor functions Last Seen Last Seen: This patient was last seen in our office . Pertinent comments regarding their Physical therapy will appear below: At this point I will be discontinuing this patient from physical therapy. I would be happy to see this patient again in the future if found appropriate by the physician. Thank you! Dorothy Barton, CAMACHO Balance/Gait/Functional tests Balance/Special Test Scores Oswestry Low Back Score: 25
== END 2024-01-30 19:00 | disposition home or self-care (01) ==
LOC: PT 10:30
PROVIDERS: PCP Internal Medicine; Referring Provider Physician Assistant Surgical; Visit Provider Physician Assistant Surgical
DX: S39.012D Strain of muscle, fascia and tendon of lower back, subsequent encounter (principal); M54.32 Sciatica, left side
CPT/HCPCS: 97110; 97162; 97530

== ENCOUNTER 2024-02-21 09:26 | Emergency (ER) | payer MEDICARE, OTHER, SELFPAY ==
[2024-02-21 09:27] VITALS: BP 163/80; PULSE 58; RESP 16; TEMP 36.3; O2SAT 100; BMI 27.8
--- NOTE | 2024-02-21 10:20 | EX.ED.DYSGE1 ---
HPI History of Present Illness Chief Complaint: Wound Check Informant: patient and spouse/S.O. Onset/Context/Timing Onset: Days Context: Gradual Onset Timing: Continuous Current Severity: Mild Maximum Severity: Mild Narrative Narrative: 73-year-old male history of arthritis recent lumbar back surgery laminectomy done by Dr. Bingham of [facility]. Wound has been looking good. has been caring for it daily with iodine cleansing's. They have noticed slightly more redness and some clear to straw-colored discharge. Patient said it is not painful. His back pain from the surgery is much better. He said the reason he got the surgery was because of back pain and that is much improved. They have not had any fever or puslike drainage. Prior similar symptoms: No Recent Illness/Hospitalization: No PFSH PFS Medical History Hx of hemorrhoids Smoker Anxiety and depression Prediabetes Erectile dysfunction Cervical disc disease Iron deficiency anemia Esophageal reflux Hyperlipidemia Migraine HTN (hypertension) Home Medications ?Medication ?Instructions ?Recorded ?Last Taken ?Type ascorbate calcium (vitamin C) 500 500 mg PO DAILY 08/27/21 Unknown History mg tablet cholecalciferol (vitamin D3) 50 50 mcg PO DAILY 08/27/21 Unknown History mcg (2,000 unit) capsule cholestacare PO 08/27/21 Unknown History diclofenac sodium 1 % topical gel 2 g topical ONCE 08/27/21 Unknown History (Voltaren Arthritis Pain) econazole 1 % topical cream 1 applic topical DAILY 08/27/21 Unknown History ferrous sulfate 325 mg (65 mg 325 mg PO DAILY 08/27/21 Unknown History iron) tablet fluticasone propionate 50 1 spray intranasal DAILY 08/27/21 Unknown History mcg/actuation nasal spray,suspension (Flonase Allergy Relief) glucosamine sulfate 500 mg tablet 500 mg PO DAILY 08/27/21 Unknown History (Glucosamine) hydrocortisone 0.5 % topical cream 1 applic topical BID PRN 08/27/21 Unknown History mecobalamin (vitamin B12) 1,000 1,000 mcg sublingual DAILY 08/27/21 Unknown History mcg disintegrating tablet,sublingual menthol 10.5 % topical spray spray topical 08/27/21 Unknown History (Biofreeze (menthol)) prostate support PO 08/27/21 Unknown History stool softner PO 08/27/21 Unknown History sumatriptan succinate 50 mg tablet See Rx Instructions PO .COMPLEX 08/27/21 Unknown History ultimate eye support PO 08/27/21 Unknown History zinc 50 mg tablet 50 mg PO DAILY 08/27/21 Unknown History ibuprofen 200 mg capsule 200 mg PO Q6H PRN 06/16/23 Unknown History rosuvastatin 20 mg tablet 20 mg PO DAILY #90 TABLETS 11/26/23 Unknown Rx tamsulosin 0.4 mg capsule (Flomax) 0.4 mg PO QHS #90 caps 12/01/23 Unknown Rx amlodipine 10 mg tablet 10 mg PO DAILY #90 TABLETS 12/30/23 Unknown Rx valsartan 160 mg tablet 160 mg PO DAILY #90 TABLETS 01/15/24 Unknown Rx hydrochlorothiazide 12.5 mg tablet 12.5 mg PO DAILY #90 tabs 01/29/24 Unknown Rx pantoprazole 40 mg tablet,delayed 40 mg PO DAILY #90 tabs 02/01/24 Unknown Rx release amoxicillin 875 mg-potassium 1 tab PO BID #13 tabs 02/21/24 Unknown Rx clavulanate 125 mg tablet Allergy/AdvReac Type Severity Reaction Status Date / Time cephalexin (From Keflex) Allergy Intermediate Itch Verified 02/21/24 09:27 telmisartan (Micardis) Allergy Mild cough Verified 02/21/24 09:27 quinapril (From Accupril) Allergy Unknown cough Verified 02/21/24 09:27 simvastatin (From Zocor) AdvReac Unknown fatigue Verified 02/21/24 09:27 Family History Mother Breast cancer Father Hyperlipidemia Grandmother CVA (cerebral vascular accident) Grandfather CAD (coronary artery disease) Son Seizures Aspergers' syndrome ADHD (attention deficit hyperactivity disorder) Surgical History Total knee replacement status H/O hemorrhoidectomy History of vasectomy History of back surgery History of tonsillectomy Social History household members: spouse current occupational status: employed and retired current occupation: student truck driver, 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 Constitutional Constitutional ED: Denies chills or fever(s) Eyes Eyes: Denies blurry vision ENT ENT ED: Denies ear pain Cardiovascular Cardiovascular: Denies chest pain Respiratory/Chest Respiratory/Chest: Denies cough or dyspnea Gastrointestinal Gastrointestinal: Denies abdominal pain Genitourinary Genitourinary ED: Denies dysuria or hematuria Musculoskeletal Musculoskeletal: Denies arthralgias Integumentary Denies abscess or Abrasions Neurologic Neurologic: Denies headache(s) Psychiatric Psychiatric: Denies anxiety Endocrine Endocrinology: Denies cold intolerance Hematologic/Lymphatic Hematologic/Lymphatic: Reports none Allergic/Immunologic Allergic/Immunologic ED: Denies mouth swelling, tongue swelling or urticaria EXAM Physical Exam Narrative Exam Narrative: -year-old male no acute distress sitting upright in bed. in the room. Vital signs are stable afebrile. No distress. H EENT exam unremarkable. Neck nontender. Lungs clear. Heart regular rate and rhythm rate about 60 no murmur. Chest wall ribs nontender. Abdomen soft nontender. Moving all 4 extremities. Normal heavy antiarmor weapons infantryman strength. Normal dorsi plantarflexion in his lower extremities. Normal strength. Neurologically is awake and alert no focal motor deficits. Back he has a several inch midline lumbar incision. It is dry and clean. There is no significant cellulitis there is redness around the wound which may be stitch reaction. I do not visualize any pus. There is straw-colored discharge at the top of the wound. Const Vital Signs: 02/21/24 09:27 Temperature 97.4 F L Temperature Source Oral Pulse Rate 58 L Respiratory Rate 16 Blood Pressure 163/80 H Blood Pressure Mean 107 Pulse Ox 100 Oxygen Delivery Method Room Air Positive well nourished and well developed; Negative for obese, cachectic, contractures or unkempt General Appearance ED: well developed and NAD; Negative for unkempt, cachectic, contractures, cyanotic, diaphoretic or pallor Nutritional Appearance: Negative for cachectic or obese HEENT Reports moist mucous membranes Eyes PERRL and EOMs intact bilaterally General Eye ED: Negative for pale conjunctiva or scleral icterus Neck no lymphadenopathy, supple and no JVD Chest Wall inspection of chest normal and palpation of chest normal Resp normal respiratory effort and clear to auscultation bilaterally Cardio regular rate, regular rhythm, S1 normal heart sound, S2 normal heart sound and no murmurs GI normal to inspection, nondistended, normoactive bowel sounds, non-tender, non-distended and no masses Palpation: soft; Negative for tender or guarding Back/Spine no CVA tenderness Back/Spine Narrative: Healing lumbar wound. With drainage. General Back: Negative for CVA tenderness Cervical Spine: Negative for cervical spine tenderness Thoracic Spine / Upper Back: Negative for thoracic spinal tenderness Lumbar Spine / Lower Back: Negative for lumbar spinal tenderness Extremity normal to inspection General Extremety ED: Negative for edema or tenderness General Extremity: Negative for edema Neuro oriented x3 Sensorium / Orientation: alert Motor Exam: strength 5/5 throughout Psych mental status grossly normal Appearance: Negative for unkempt Attitude: No agitated Mood & Affect: Negative for depressed, anxious or tearful Skin no rashes or lesions noted and no wounds Skin Narrative: Stitch reaction around the back wound. Discharge. Straw-colored. General Skin Exam: Negative for jaundice or pallor Lesions: No lesion noted Rashes: No rashes noted Trauma: Negative for abrasion Wounds: Negative for wounds noted MDM MDM MDM Narrative Medical decision making narrative: 73-year-old male status post laminectomy of his lumbar spine. Has some redness around the wound and drainage. This may just be reaction to the incision and stitches. He will be started on Augmentin in case of an early infection. He has an allergy to Keflex. He has appointment to see his back surgeon this coming Friday. They know to return if worse or follow-up sooner if this is looking worse. Discharge Plan Triage Chief Complaint: Wound Check ED Provider: Richard Quezada Dx/Rx/DC Orders Clinical Impression: Encounter for post surgical wound check, History of back surgery Instructions: ED Wound Care Prescriptions: New amoxicillin-pot clavulanate 875-125 mg tablet 1 tab PO BID Qty: 13 0RF No Action ferrous sulfate 325 mg (65 mg iron) tablet 325 mg PO DAILY sumatriptan succinate 50 mg tablet See Rx Instructions PO .COMPLEX Rx Instructions: take 1 tab at onset of headache; if no relief may repeat 1 tab after at least 2 hrs; max = 4 tabs/24 hr PO mecobalamin (vitamin B12) 1,000 mcg tablet,disintegrating 1,000 mcg sublingual DAILY Rx Instructions: place tablet under tongue and allow to dissolve for at least30 secs before swallowing ascorbate calcium (vitamin C) 500 mg tablet 500 mg PO DAILY cholecalciferol (vitamin D3) 50 mcg (2,000 unit) capsule 50 mcg PO DAILY zinc 50 mg tablet 50 mg PO DAILY stool softner PO prostate support PO cholestacare PO ultimate eye support PO glucosamine sulfate [Glucosamine] 500 mg tablet 500 mg PO DAILY Rx Instructions: administer with a meal econazole 1 % cream 1 applic topical DAILY fluticasone propionate [Flonase Allergy Relief] 50 mcg/actuation spray,suspension 1 spray intranasal DAILY Rx Instructions: administer into each nostril hydrocortisone 0.5 % cream 1 applic topical BID PRN diclofenac sodium [Voltaren Arthritis Pain] 1 % gel 2 g topical ONCE Rx Instructions: apply to single elbow, wrist or hand; for hand includes palm/fingers/back of hand Biofreeze (menthol) 10.5 % aerosol,spray topical ibuprofen 200 mg capsule 200 mg PO Q6H PRN tamsulosin [Flomax] 0.4 mg capsule 0.4 mg PO QHS Qty: 90 0RF rosuvastatin 20 mg tablet 20 mg PO DAILY Qty: 90 1RF amlodipine 10 mg tablet 10 mg PO DAILY Qty: 90 1RF valsartan 160 mg tablet 160 mg PO DAILY Qty: 90 1RF hydrochlorothiazide 12.5 mg tablet 12.5 mg PO DAILY Qty: 90 1RF pantoprazole 40 mg tablet,delayed release (DR/EC) 40 mg PO DAILY Qty: 90 1RF Primary Care Provider: Celestina Meyer Referrals: Celestina Meyer MD [Primary Care Provider] - Jac Bingham DO [Med Staff - Active Staff] - Keep Eryn appointment Activity Restrictions/Additional Instructions: Care of the wound as instructed by Dr. Bingham's office. To be cautious we will start you on the antibiotic Augmentin 1 pill twice a day for a week. When she follow-up with Dr. Bingham he can decide if he wants to continue antibiotics or stop it. Call his office and follow-up sooner than your prescheduled appointment if it is looking worse. Print Language: Trinidadian Disposition Disposition: Home, Self Care
[2024-02-21] MEDS: Amox/Clavulanate 875 MG Tablet PO (10:38)
== END 2024-02-21 10:40 | disposition home or self-care (01) ==
PROVIDERS: Emergency Provider Emergency Medicine; PCP Internal Medicine; Visit Provider Emergency Medicine
DX: Z51.89 Encounter for other specified aftercare (principal); M54.9 Dorsalgia, unspecified; E78.5 Hyperlipidemia, unspecified; I10 Essential (primary) hypertension; R73.03 Prediabetes; Z98.890 Other specified postprocedural states; Z87.891 Personal history of nicotine dependence
CPT/HCPCS: 99282

== ENCOUNTER → 2024-06-03 | Outpatient (CLI) | payer MEDICARE, OTHER, SELFPAY ==
[2024-06-03 12:26] LABS: Absolute Lymphocyte Count 0.75 X10^3/uL (0.83-4.51); Absolute Neutrophil Count 3.2 X10^3/uL (2.0-7.7); Basophil# 0.06 X10^3/uL; Basophil% 1.2 % (0-1); Eosinophil# 0.17 X10^3/uL; Eosinophils% 3.4 % (0-5); Hematocrit 44.4 % (40-54); Hemoglobin 14.5 g/dL (13.0-16.5); Lymphocyte # 0.75 X10^3/ul (0.83-4.51); Mean Corp Hgb Conc 32.7 g/dL (32-36); Mean Corpuscular Hgb 30.3 pg (27.0-32.0); Mean Corpuscular Volume 92.9 fL (80-94); Mean Platelet Vol. 10.6 fl (6.2-12.0); Monocyte# 0.82 X10^3/uL; Monocyte% 16.4 % (0-10); NRBC Flagged by Analyzer 0 % (0-5); Neutrophil # 3.19 X10^3/uL (2.7-7.7); Neutrophil % 63.8 % (47-70); Platelet Count 215 K/mm3 (150-450); RBC Distribution Width CV 13.2 % (11.6-14.6); RBC Distribution Width SD 45.1 fl (35.1-43.9); Red Blood Count 4.78 M/mm3 (4.6-6.2)
[2024-06-03 12:38] LABS: Vitamin B12 646 pg/mL (211-911); Vitamin D,25 Hydroxy 60.5 ng/mL
[2024-06-03 12:43] LABS: ALB/GLOB Ratio 1.1 RATIO (0.9-2.4); AST(SGOT) 33 U/L (15-37); Alanine Aminotransfer ALT/SGPT 44 U/L (16-61); Albumin, Serum 3.6 g/dL (3.2-5.0); Alkaline Phosphatase 117 U/L (45-117); Anion Gap 6 (5-15); BUN 24 mg/dL (7-18); BUN/Creat Ratio 22.2 RATIO (10-20); Calcium,Total 9.5 mg/dL (8.5-10.1); Chloride 108 mmol/L (98-107); Cholesterol 170 mg/dL (200); Creatinine, Serum 1.08 mg/dL (0.70-1.30); EST Glomerular Filtration Rate 71 mL/min (>60); Est Glom Filt Rate - Afr Amer 86 mL/min (>60); Ferritin 43 ng/mL (26-388); Globulin 3.2 g/dL (2.2-4.2); Glucose 105 mg/dL (74-106); High Density Lipoprotein 56 mg/dL; Iron 55 ug/dL (65-175); Iron Binding Capacity,Total 345 ug/dL (250-450); PERCENT IRON SATURATION 15.9 % (15.0-55.0); PSA,Total- Diagnostic 4.07 ng/mL (0.0-4.0); Potassium 3.7 mmol/L (3.5-5.1); Protein, Total 6.8 g/dL (6.4-8.2); Sodium Level 140 mmol/L (136-145); Triglycerides 56 mg/dL; Very Low Density Lipoprotein 11 mg/dL (5-40)
[2024-06-03 14:27] LABS: Hemoglobin A1c 5.7 % (3.8-5.6)
== END | disposition home or self-care (01) ==
LOC: BIMLAB 09:44
PROVIDERS: PCP Internal Medicine; Referring Provider Internal Medicine; Visit Provider Internal Medicine
DX: I10 Essential (primary) hypertension (principal); E55.9 Vitamin D deficiency, unspecified; R73.03 Prediabetes; D50.9 Iron deficiency anemia, unspecified; E78.2 Mixed hyperlipidemia; N40.0 Benign prostatic hyperplasia without lower urinary tract symptoms
CPT/HCPCS: 36415; 80053; 80061; 82306; 82607; 82728; 83036; 83540; 83550; 84153; 85025